=== PATIENT | male | born 1960 | race American Indian/Alaskan Native ===

== ENCOUNTER 2022-04-08 09:36 | Emergency (ER) | payer SELFPAY ==
[2022-04-08] MEDS ORDERED: SODIUM CHLORIDE 0.9% 1000 ML IV SOLN IV ONE (10:13)
[2022-04-08] MEDS ORDERED: ACETAMINOPHEN 325 MG TAB PO ONE (10:13)
[2022-04-08] MEDS ORDERED: cefTRIAXone/NS 2 GM/100 ML 2 GM/100 ML BAG IV ONE (10:13)
--- NOTE | 2022-04-08 10:46 | XRay Report ---
CHEST 1 VIEW 04/08/2022 10:25 AM INDICATION / CLINICAL INFORMATION: Dyspnea. COMPARISON: None available. FINDINGS: SUPPORT DEVICES: None. HEART / MEDIASTINUM: No significant abnormality. LUNGS / PLEURA: Patchy opacity right lung base. No pneumothorax. ADDITIONAL FINDINGS: No significant additional findings. IMPRESSION: 1. Patchy opacity right lung base is concerning for pneumonia. Signer Name: Lang Elise MD Signed: 04/08/2022 10:42 AM Workstation Name: [id number]
[2022-04-08 10:52] LABS: Basophils % (Auto) 0.5 % (0.0-1.8); Hematocrit 38.6 % (35.5-45.6); Hemoglobin 12.8 gm/dl (11.8-15.2); Lymphocytes # (Auto) 0.6 K/mm3 (1.2-5.4); Lymphocytes % (Auto) 7.6 % (13.4-35.0); Mean Corpuscular HGB Conc 33 % (32-34); Mean Corpuscular Volume 96 fl (84-94); Monocytes # (Auto) 1.1 K/mm3 (0.0-0.8); Monocytes % (Auto) 12.7 % (0.0-7.3); Platelet Count 199 K/mm3 (140-440); Red Blood Count 4.02 M/mm3 (3.65-5.03); Red Cell Distribution Width 14.5 % (13.2-15.2)
[2022-04-08 11:14] LABS: INR 0.96 (0.87-1.13)
[2022-04-08 11:19] LABS: Alanine Aminotransferase 17 units/L (7-56); Albumin 3.9 g/dL (3.9-5); BUN/Creatinine Ratio 9; Blood Urea Nitrogen 10 mg/dL (9-20); Calcium 8.5 mg/dL (8.4-10.2); Hemolysis Index 45
[2022-04-08 11:49] VITALS: BP 132/73
--- NOTE | 2022-04-08 12:42 | Emergency Department Report ---
ED General Adult HPI - General Chief complaint: Weakness Stated complaint: BACK PAIN ,CHILLIS PUI?: No Time Seen by Provider: 04/08/22 10:11 Source: patient Mode of arrival: Ambulatory Limitations: No Limitations - History of Present Illness Initial comments: BACK PAIN, HEADACHE, TRIED AND LOSS OF APPETTIE. STARTED 2 DAYS AGO pt had a fever, hiistory of asthma come cough no nausea or vomiting -: Gradual, days(s) Radiation: non-radiation Severity scale (0 -10): 0 Consistency: intermittent Improves with: none Worsens with: none Associated Symptoms: fever/chills, weakness - Related Data Previous Rx's Medication Instructions Recorded Last Taken Type levoFLOXacin [Levaquin TAB] 500 mg PO QDAY #10 tablet 04/08/22 Unknown Rx Allergies Allergy/AdvReac Type Severity Reaction Status Date / Time No Known Allergies Allergy Unverified 04/08/22 09:39 ED Review of Systems ROS: Stated complaint: BACK PAIN ,CHILLIS Other details as noted in HPI Constitutional: denies: chills, fever Eyes: denies: eye pain, eye discharge, vision change ENT: denies: ear pain, throat pain Respiratory: denies: cough, shortness of breath, wheezing Cardiovascular: denies: chest pain, palpitations Endocrine: no symptoms reported Gastrointestinal: denies: abdominal pain, nausea, diarrhea Genitourinary: denies: urgency, dysuria Musculoskeletal: denies: back pain, joint swelling, arthralgia Skin: denies: rash, lesions Neurological: denies: headache, weakness, paresthesias Psychiatric: denies: anxiety, depression Hematological/Lymphatic: denies: easy bleeding, easy bruising ED Past Medical Hx - Past Medical History Previous Medical History?: No Hx Hypertension: No Hx Asthma: Yes - Surgical History Additional Surgical History: NOSE - Medications Home Medications: Home Medications Medication Instructions Recorded Confirmed Last Taken Type levoFLOXacin [Levaquin TAB] 500 mg PO QDAY #10 tablet 04/08/22 Unknown Rx ED Physical Exam - General Limitations: No Limitations General appearance: alert, other (febrile) - Head Head exam: Present: atraumatic, normocephalic - Eye Eye exam: Present: normal appearance - ENT ENT exam: Present: mucous membranes moist - Neck Neck exam: Present: normal inspection - Respiratory Respiratory exam: Present: normal lung sounds bilaterally. Absent: respiratory distress - Cardiovascular Cardiovascular Exam: Present: normal rhythm, tachycardia. Absent: systolic murmur, diastolic murmur, rubs, gallop - GI/Abdominal GI/Abdominal exam: Present: soft, normal bowel sounds - Rectal Rectal exam: Present: deferred - Extremities Exam Extremities exam: Present: normal inspection - Back Exam Back exam: Present: normal inspection - Neurological Exam Neurological exam: Present: alert, oriented X3 - Psychiatric Psychiatric exam: Present: normal affect, normal mood - Skin Skin exam: Present: warm, dry, intact, normal color. Absent: rash ED Course Vital Signs 04/08/22 04/08/22 04/08/22 09:41 09:44 10:00 Temperature 103.2 F H 100.0 F H Pulse Rate 116 H 127 H Respiratory 24 20 30 H Rate Blood Pressure 123/66 Blood Pressure 126/68 [Left] O2 Sat by Pulse 97 94 99 Oximetry 04/08/22 04/08/22 04/08/22 10:04 10:05 10:07 Temperature Pulse Rate 99 H 115 H 115 H Respiratory 32 H 27 H 23 Rate Blood Pressure 126/68 Blood Pressure [Left] O2 Sat by Pulse 92 94 Oximetry 04/08/22 04/08/22 04/08/22 10:31 11:01 11:31 Temperature Pulse Rate 116 H 114 H 113 H Respiratory 30 H 25 H 22 Rate Blood Pressure 132/73 132/73 132/73 Blood Pressure [Left] O2 Sat by Pulse 96 96 92 Oximetry ED Medical Decision Making - Lab Data Result diagrams: 04/08/22 10:20 04/08/22 10:20 - Radiology Data Radiology results: report reviewed, image reviewed - Medical Decision Making sepsis alert , abx and lfuids work up showed pneumonia , will d/c on abx Critical care attestation.: If time is entered above; I have spent that time in minutes in the direct care of this critically ill patient, excluding procedure time. ED Disposition Clinical Impression: Fever, Pneumonia Disposition: 01 HOME / SELF CARE / HOMELESS Is pt being admited?: No Does the pt Need Aspirin: No Condition: Stable Instructions: Bacterial Pneumonia (ED), Community-Acquired Pneumonia, Adult Referrals: PRIMARY CARE, [Primary Care Provider] - 3-5 Days
== END 2022-04-08 13:25 | disposition home or self-care (01) ==
LOC: ED 09:36
DX: J18.9 Pneumonia, unspecified organism (principal); R51.9 Headache, unspecified; Z20.822 Contact with and (suspected) exposure to COVID-19; R79.1 Abnormal coagulation profile; M54.9 Dorsalgia, unspecified; J45.909 Unspecified asthma, uncomplicated; Z79.899 Other long term (current) drug therapy
CPT/HCPCS: 36415; 71045; 80053; 82140; 82550; 84484; 85025; 85610; 87040; 96365; 99284; J0696; J7030; U0003; 80320; G0480

== ENCOUNTER 2022-04-16 17:48 | Emergency (ER) | payer SELFPAY ==
[2022-04-16] MEDS ORDERED: GLUCAGON (HUMAN RECOMBINANT) 1 MG/ML INJ IV ONE (21:49)
--- NOTE | 2022-04-16 21:50 | Emergency Department Report ---
HPI - HPI HPI: Room 25 The patient is a 62-year-old male present with chief complaint of food stuck in his throat. Patient states he had taken of bite of chicken at 1600 and felt as though his got stuck in his throat. Patient states he has not been able to to tolerate anything by mouth since this event. Patient states even when he drinks water it comes right back up. The patient states his last meal before this event was breakfast this morning and he ate without difficulty <BERNA REDMOND - Last Filed: 04/17/22 05:31> <YOKO LUDWIG - Last Filed: 04/17/22 08:40> - General Chief Complaint: Skin/Abscess/Foreign Body Time Seen by Provider: 04/16/22 21:38 ED Past Medical Hx - Past Medical History Hx Asthma: Yes - Surgical History Additional Surgical History: NOSE - Family History Family history: no significant - Social History Smoking Status: Never Smoker Substance Use Type: None (Denies illicit drug use) <BERNA REDMOND - Last Filed: 04/17/22 05:31> <YOKO LUDWIG - Last Filed: 04/17/22 08:40> - Medications Home Medications: Home Medications Medication Instructions Recorded Confirmed Last Taken Type levoFLOXacin [Levaquin TAB] 500 mg PO QDAY #10 tablet 04/08/22 Unknown Rx ED Review of Systems ROS: Stated complaint: CHICKEN STUCK IN THROAT Other details as noted in HPI Constitutional: no symptoms reported Eyes: denies: eye pain ENT: throat pain Respiratory: no symptoms reported Cardiovascular: denies: chest pain Endocrine: no symptoms reported Gastrointestinal: vomiting. denies: abdominal pain Genitourinary: denies: dysuria Musculoskeletal: denies: back pain Neurological: denies: headache <BERNA REDMOND - Last Filed: 04/17/22 05:31> ROS: Stated complaint: CHICKEN STUCK IN THROAT Other details as noted in HPI <YOKO LUDWIG - Last Filed: 04/17/22 08:40> Physical Exam - Physical Exam Vital Signs: Vital Signs 04/16/22 20:41 Temperature 98.2 F Pulse Rate 106 H Respiratory 18 Rate Blood Pressure 135/70 O2 Sat by Pulse 98 Oximetry Physical Exam: GENERAL: The patient is well-developed well-nourished male lying on stretcher occasionally spitting into a trash bin. [] HEENT: Normocephalic. Atraumatic. Extraocular motions are intact. Patient has moist mucous membranes. NECK: Supple. Trachea midline. There is no stridor CHEST/LUNGS: Clear to auscultation. There is no respiratory distress noted. HEART/CARDIOVASCULAR: Regular. There is no tachycardia. There is no gallop rub or murmur. ABDOMEN: Abdomen is soft, nontender. Patient has normal bowel sounds. There is no abdominal distention. SKIN: There is no rash. There is no edema. There is no diaphoresis. NEURO: The patient is awake, alert, and oriented. The patient is cooperative. The patient has no focal neurologic deficits. The patient has normal speech. GCS 15 MUSCULOSKELETAL: There is no evidence of acute injury. <BERNA REDMOND - Last Filed: 04/17/22 05:31> - Physical Exam Vital Signs: Vital Signs 04/16/22 04/16/22 04/17/22 20:41 22:10 06:36 Temperature 98.2 F Pulse Rate 106 H 103 H 80 Respiratory 18 18 18 Rate Blood Pressure 135/70 Blood Pressure 142/89 131/74 [Right] O2 Sat by Pulse 98 99 97 Oximetry <YOKO LUDWIG - Last Filed: 04/17/22 08:40> ED Course Vital Signs 04/16/22 20:41 Temperature 98.2 F Pulse Rate 106 H Respiratory 18 Rate Blood Pressure 135/70 O2 Sat by Pulse 98 Oximetry - Consultations Consultation #1: 04/16/22 21:43 GI paged 04/16/22 21:52 Case discussed with clinical educator Dr. Dsozua-do not have emergency endoscopy coverage in the ED at this time. Recommends transferring however if unsuccessful there will be a team available in the morning Consultation #2: 04/16/22 21:54 [place] transfer line called 04/16/22 22:18 Case discussed with clinical educator Dr. Mireles. States they do not have any beds available so unfortunately they are not able to accept the patient in transfer 04/16/22 22:19 [facility] transfer line called 04/16/22 22:20 [place] on medical diversion 04/16/22 22:21 [facility] [place] transfer line called 04/16/22 22:23 [place] at capacity not accepting transfers 04/16/22 22:23 [place] transfer line called 04/16/22 22:27 [place] at capacity, not accepting transfers 04/16/22 22:28 [place] transfer line called 04/16/22 23:01 [place] at capacity and not accepting transfers Consultation #3: 04/17/22 05:[address] Aguilar- will see patient in the ED for endoscopy <BERNA REDMOND - Last Filed: 04/17/22 05:31> Vital Signs 04/16/22 04/16/22 04/17/22 20:41 22:10 06:36 Temperature 98.2 F Pulse Rate 106 H 103 H 80 Respiratory 18 18 18 Rate Blood Pressure 135/70 Blood Pressure 142/89 131/74 [Right] O2 Sat by Pulse 98 99 97 Oximetry <YOKO LUDWIG - Last Filed: 04/17/22 08:40> ED Medical Decision Making - Lab Data Result diagrams: 04/16/22 21:50 04/16/22 21:50 - Differential Diagnosis Food impaction <BERNA REDMOND - Last Filed: 04/17/22 05:31> - Lab Data Result diagrams: 04/16/22 21:50 04/16/22 21:50 <YOKO LUDWIG - Last Filed: 04/17/22 08:40> Critical care attestation.: If time is entered above; I have spent that time in minutes in the direct care of this critically ill patient, excluding procedure time. <BERNA REDMOND - Last Filed: 04/17/22 05:31> Critical care attestation.: If time is entered above; I have spent that time in minutes in the direct care of this critically ill patient, excluding procedure time. <YOKO LUDWIG - Last Filed: 04/17/22 08:40> ED Disposition <BERNA REDMOND - Last Filed: 04/17/22 05:31> Is pt being admited?: No Does the pt Need Aspirin: No <YOKO LUDWIG - Last Filed: 04/17/22 08:40> Clinical Impression: Food impaction of esophagus Disposition: HOME / SELF CARE / HOMELESS Condition: Stable Referrals: CARBUCCIA,VAL, MD [Primary Care Provider] - 3-5 Days ÁNGELA AGUILAR MD [Staff Physician] - 3-5 Days
[2022-04-16] MEDS ORDERED: SODIUM CHLORIDE 0.9% 1000 ML 1,000 ML IV ONE (22:00)
[2022-04-16 22:06] LABS: Basophils % (Auto) 0.5 % (0.0-1.8); Eosinophils % (Auto) 0.4 % (0.0-4.3); Hematocrit 37.6 % (35.5-45.6); Hemoglobin 12.5 gm/dl (11.8-15.2); Lymphocytes # (Auto) 1.3 K/mm3 (1.2-5.4); Lymphocytes % (Auto) 13.4 % (13.4-35.0); Mean Corpuscular HGB Conc 33 % (32-34); Mean Corpuscular Volume 96 fl (84-94); Monocytes # (Auto) 0.8 K/mm3 (0.0-0.8); Monocytes % (Auto) 8.2 % (0.0-7.3); Platelet Count 524 K/mm3 (140-440); Red Blood Count 3.92 M/mm3 (3.65-5.03); Red Cell Distribution Width 14.4 % (13.2-15.2)
[2022-04-16 22:29] LABS: BUN/Creatinine Ratio 19; Blood Urea Nitrogen 15 mg/dL (9-20); Calcium 8.9 mg/dL (8.4-10.2); Hemolysis Index 13
[2022-04-17] MEDS ORDERED: WATER FOR IRRIG STERILE 250 ML BOTTLE IR ONE (07:57)
[2022-04-17] MEDS ORDERED: GLUCAGON (HUMAN RECOMBINANT) 1 MG/ML INJ ONE (07:57)
[2022-04-17] MEDS ORDERED: WATER FOR IRRIG STERILE 1,000 ML BOTTLE ONE (07:57)
[2022-04-17] MEDS ORDERED: SODIUM CHLORIDE 0.9% 1000 ML 1,000 ML ONE (07:57)
--- NOTE | 2022-04-17 08:21 | Anesthesia Consultation ---
Anesthesia Consult and Med Hx Date of service: 04/17/22 - Airway Anesthetic Teeth Evaluation: Dentures (upper), Edentulous (bottom) ROM Head & Neck: Adequate Mental/Hyoid Distance: Adequate Mallampati Class: Class II Intubation Access Assessment: Probably Good - Pre-Operative Health Status ASA Pre-Surgery Classification: ASA2 Proposed Anesthetic Plan: MAC - Pulmonary Hx Smoking: Yes (1 pack/day x 40 years, quit 2 weeks ago) Hx Asthma: Yes Hx Pneumonia: Yes (2 weeks ago) - Gastrointestinal Hx Gastroesophageal Reflux Disease: Yes
--- NOTE | 2022-04-17 08:21 | Anesthesia Day of Surgery ---
Anesthesia Day of Surgery - Day of Surgery Patient Examined: Yes Patient H&P Reviewed: Yes Patient is NPO: Yes
[2022-04-17] MEDS ORDERED: propofoL 200 MG/20 ML VIAL IV ONE (08:24)
--- NOTE | 2022-04-17 09:11 | Gastroenterology Consultation ---
History of Present Illness - Reason for Consult Consult date: 04/17/22 Food impaction of the esophagus Requesting physician: BERNA REDMOND - History of Present Illness There is a pleasant 62-year-old gentleman who presents with food impaction Patient reports very rare intermittent esophageal dysphagia to solids. Duration years. Stable. He reports recent admission to the emergency room and discharge for pneumonia about 2 weeks ago He reports yesterday afternoon was eating chicken, and it became stuck he has not been able to swallow solids or tolerate liquids or even his secretions since No difficulty breathing No chest pain Denies any significant acid reflux history Denies alcohol or tobacco currently Denies any family history of esophageal or GI issues Obtained/updated/reviewed patient's current medications Past History Past Medical History: other Past Surgical History: No surgical history Social history: no significant social history Family history: no significant family history Medications and Allergies Allergies Allergy/AdvReac Type Severity Reaction Status Date / Time No Known Allergies Allergy Unverified 04/08/22 09:39 Home Medications Medication Instructions Recorded Confirmed Last Taken Type levoFLOXacin [Levaquin TAB] 500 mg PO QDAY #10 tablet 04/08/22 Unknown Rx Exam - Exam Narrative Exam: Sitting up, spitting out his saliva occasionally - Constitutional Vital Signs: Temp Pulse Resp BP Pulse Ox 98.2 F 80 18 131/74 97 04/16/22 20:41 04/17/22 06:36 04/17/22 06:36 04/17/22 06:36 04/17/22 06:36 General appearance: no acute distress - EENT Eyes: EOM intact ENT: hearing intact - Neck Neck: supple - Respiratory Respiratory effort: normal - Cardiovascular Rhythm: regular - Gastrointestinal General gastrointestinal: Present: non-tender - Integumentary Integumentary: Present: dry - Musculoskeletal Musculoskeletal: normal - Neurologic Neurological: alert and oriented x3 - Psychiatric Psychiatric: appropriate mood/affect - Labs CBC & Chem 7: 04/16/22 21:50 04/16/22 21:50 Lab Results: Laboratory Results - last 24 hr 04/16/22 04/16/22 21:50 21:50 WBC 9.4 RBC 3.92 Hgb 12.5 Hct 37.6 MCV 96 H MCH 32 MCHC 33 RDW 14.4 Plt Count 524 H Lymph % (Auto) 13.4 [place] % (Auto) 8.2 H Eos % (Auto) 0.4 Baso % (Auto) 0.5 Lymph # (Auto) 1.3 [place]yer # (Auto) 0.8 Eos # (Auto) 0.0 Baso # (Auto) 0.0 Seg Neutrophils % 77.5 H Seg Neutrophils # 7.3 Sodium 141 Potassium 4.7 Chloride 103.0 Carbon Dioxide 27 Anion Gap 16 BUN 15 Creatinine 0.8 Estimated GFR > 60 BUN/Creatinine Ratio 19 Glucose 93 Calcium 8.9 Assessment and Plan Clinical presentation consistent with food impaction of the esophagus. Differential diagnosis for underlying etiology includes rings, webs, malignancy, etc. Will proceed with emergency EGD - Patient Problems (1) Food impaction of esophagus Current Visit: Yes Status: Acute
--- NOTE | 2022-04-17 09:12 | Operative Report ---
Operative Report Operative Report: DOS: 04/17/22 SURGEON: Hugo Julien MD EGD REPORT PREOPERATIVE DIAGNOSIS and POSTOPERATIVE DIAGNOSIS: Esophageal foreign body ESTIMATED BLOOD LOSS: Minimal DESCRIPTION OF PROCEDURE: A high-resolution EGD scope was passed through the oropharynx, esophagus, stomach, and second portion of duodenum. The scope was carefully withdrawn. Retroflexion was performed in the stomach. At the end of the procedure, the scope was cleaned using normal technique. Vital signs monitored continuously throughout. SEDATION: Provided by [facility]iology [facility]. COMPLICATIONS: None. FINDINGS: * Chunk of food in the proximal esophagus. This was able to be gently pushed down through the esophagus and pushed into the stomach with minimal resistance * No gross lesions in the duodenum * No gross lesions in the stomach * 2 cm hiatal hernia * GE junction located approximately 30 cm from incisors * No significant esophagitis in the distal esophagus * Significant edema and esophagitis in the proximal esophagus for a distance of approximately 2 cm. No clear evidence for malignancy or rings noted, there could have been moderate stenosis though unclear due to the significant edema of the underlying tissues * Remainder of exam unremarkable RECOMMENDATIONS: Patient may be discharged home on a soft mechanical diet He should follow-up in the office with me in 1 to 2 weeks, given my card for repeat EGD to ensure no underlying rings or stenosis,
[2022-04-17 11:35] VITALS: BP 110/65
--- NOTE | 2022-04-17 14:22 | Post Anesthesia Evaluation ---
- Post Anesthesia Evaluation Patient Participated: Yes Airway Patent: Yes Stable Respiratory Function: Yes Nausea/Vomiting: No Temp > 96.8F: Yes Pain Manageable: Yes Adequeate Hydration: Yes Anesthesia Complications: No
== END 2022-04-17 09:46 | disposition home or self-care (01) ==
LOC: ED 17:48
DX: T17.208A Unspecified foreign body in pharynx causing other injury, initial encounter (principal); J45.909 Unspecified asthma, uncomplicated; X58.XXXA Exposure to other specified factors, initial encounter; Y93.89 Activity, other specified; Y92.89 Other specified places as the place of occurrence of the external cause; Y99.8 Other external cause status
CPT/HCPCS: 36415; 43247; 80048; 85025; 96361; 96374; 99283; J1610; J2704; J7030